=== PATIENT | female | born 1950 | race Caucasian/White ===

== ENCOUNTER 2017-07-03 06:23 | Day surgery (SDC) | payer MEDICARE, OTHER ==
[~2017-07-03] VITALS: Ht 172.7 cm; Wt 99.8 kg
[~2017-07-03 06:23] MED LIST: BENAZEPRIL HYDR20 MG PO; COUMADIN 7.5MG7.5 MG PO; COUMADIN5 MG PO; DILTIAZEM30 MG PO; FIORICET 325 MG1 TAB PO; NEXIUM40 MG PO; PRAVASTATIN 40M40 MG PO
--- NOTE | 2017-07-03 09:27 | Operative Note ---
Removal of Neoplasm Date of procedure: 07/03/17 Pre-op diagnosis: Malignant Neoplasm face 2.7cm Post-op diagnosis: Same Surgeon: Kody Hickey Anesthesia type: Lo-Mac Description of procedure: With the patient under a Chang anesthesia the face was prepped and draped the eyes were protected with Steri-Strips. Perilesional area on the RIGHT forehead of the face was marked out and measured 2.7 cm it was infiltrated with a total of 3 mL of 2 percent lidocaine containing epinephrine. The lesion was marked out and the markup was incised, the lesion was excised, including the deep subcutaneous tissues as it extended quite deeply. Flaps were elevated and a tissue rearrangement geometric plastic repair was done with interrupted 5-0 Vicryl and 5-0 nylon. Dermabond dressing was applied. And the patient was sent to recovery in good general condition. EBL (ml): 1 Specimens obtained: Same as above at 3845
[2017-07-03 10:12] VITALS: BP 120/76
== END 2017-07-03 09:35 | disposition home or self-care (01) ==
LOC: SDC 06:23
PROVIDERS: Otolaryngology
PROC: 0HB1XZX Excision of Face Skin, External Approach, Diagnostic (ICD-10-PCS; principal; 2017-07-03 08:00)
DX: C44.319 Basal cell carcinoma of skin of other parts of face (principal)